=== PATIENT | male | born 1965 | race Caucasian/White ===

== ENCOUNTER 2017-01-31 08:39 | Day surgery (SDC) | payer MEDICAID ==
[2017-01-31] MEDS ORDERED: Lactated Ringers 1,000 ML IV SCH (09:15)
[2017-01-31] MEDS ORDERED: Propofol 200 MG/20 ML SDV ONE (10:18)
[2017-01-31] MEDS ORDERED: fentaNYL 100 MCG/2 ML SDV ONE (10:18)
[2017-01-31] MEDS ORDERED: Midazolam 1 MG/ML 2 ML SDV ONE (10:18)
[2017-01-31] MEDS ORDERED: Glycopyrrolate 0.2 MG/ML 2 ML SDV ONE (10:37)
[2017-01-31 12:24] VITALS: BP 110/72
--- NOTE | 2017-02-01 11:31 | OR ---
DATE OF PROCEDURE: 01/31/2017 PREOPERATIVE DIAGNOSIS: Colon cancer screening. POSTOPERATIVE DIAGNOSIS: Small right colon polyp. PROCEDURE PERFORMED: Colonoscopy to the cecum with biopsy resection of small right colon polyp. ANESTHESIA: IV anesthesia with monitored anesthesia care. INDICATION: This 51-year-old white male is referred for a colonoscopy for colon cancer screening. He has never had a colonoscopic exam. I counseled him for the procedure including risks and alternatives, and he gave his informed consent to proceed. DESCRIPTION OF PROCEDURE: The patient was placed in the left lateral decubitus position. IV anesthesia was administered by the Anesthesia Service. Time-out was held. A rectal exam was performed, which was unremarkable. The flexible video Olympus colonoscope was introduced through his anus, up his rectum, and out his colon all the way to the cecum. En route, in the right colon; we saw a small polyp which was removed with the biopsy forceps. Once the cecum was reached, the scope was slowly withdrawn examining the mucosa throughout. No additional mucosal abnormalities were noted. The scope was retroflexed in the rectum with the distal rectum appearing unremarkable. The scope was straightened and removed. He tolerated the procedure well. Irving Champion MD /[id number] AVEL
== END 2017-01-31 12:30 | disposition home or self-care (01) ==
LOC: JP.SDS 08:39
PROVIDERS: ATTEND Surgery
PROC: 0DBF8ZX Excision of Right Large Intestine, Via Natural or Artificial Opening Endoscopic, Diagnostic (ICD-10-PCS; principal; 2017-01-31)
DX: Z12.11 Encounter for screening for malignant neoplasm of colon (principal); D12.2 Benign neoplasm of ascending colon
CPT/HCPCS: 45380; 88305; J2250; J2704; J3010; J7120; J3490

== ENCOUNTER 2017-08-14 09:01 | Day surgery (SDC) | payer MEDICAID ==
[~2017-08-14 09:01] MED LIST: Midazolam 1 MG/ML 2 ML SDV ONE; Propofol 200 MG/20 ML SDV ONE; fentaNYL 100 MCG/2 ML SDV ONE
[2017-08-14] MEDS ORDERED: Glycopyrrolate 0.2 MG/ML 2 ML SDV IVPUSH ONE (09:30)
[2017-08-14] MEDS ORDERED: Dextrose 5%-Lactated Ringers 1,000 ML IV SCH (09:30)
[2017-08-14 13:39] VITALS: BP 121/76
--- NOTE | 2017-08-20 12:34 | OR ---
DATE OF PROCEDURE: 08/14/2017 PREOPERATIVE DIAGNOSIS: Epigastric discomfort. POSTOPERATIVE DIAGNOSES: Epigastric discomfort associated with: 1. Small hiatal hernia with grossly mild esophagitis. 2. Mild prepyloric gastritis. OPERATIVE PROCEDURES: Esophagogastroduodenoscopy with: 1. Biopsies of esophagogastric junction for histologic evaluation. 2. Biopsies of antrum for CLOtest. ANESTHESIA: IV sedation. INDICATION FOR PROCEDURE: This 52-year-old is presenting with some ongoing upper and midabdominal pain. This is predominantly postprandial. He had been on ranitidine and then recently switched to omeprazole 20 mg a day; however, he had not been taking that routinely and only using it on more or less a p.r.n. basis. He describes the postprandial pain as being across the upper and midabdomen, but more to the sides of flanks bilaterally and not much in the way of heartburn or true reflux symptoms. The plan is to proceed with an upper GI endoscopy with biopsies as indicated. Potential risks including bleeding and perforation were discussed, and the patient wishes to proceed. DETAILS OF PROCEDURE: The patient was taken to the operating room and placed in a left lateral decubitus position. IV sedation was administered, after which the upper GI endoscope was passed orally through the length of the esophagus and into the stomach with retroflexion view of the fundus, thereafter through the pyloric channel and into the proximal duodenum. Findings included normal hypopharynx, larynx, upper esophageal sphincter, and esophageal body. At the EG junction, there was a small hiatal hernia in the range of only around 1 cm and some mild edema of the gastroesophageal junction mucosa. There was no stricturing or upward extension of the gastroesophageal junction mucosal line above the upper gastric folds. Within the stomach, apart from the hiatal hernia, proximal stomach was unremarkable. There was some mild prepyloric gastritis without erosions or ulcers. Pyloric channel and the duodenum, the junction of the third and fourth portions, were unremarkable. At this point, biopsies were obtained from the antrum and sent for CLOtest for H. pylori. Multiple biopsies were sent from esophagogastric junction and sent for histologic evaluation. Minimal bleeding from the biopsy sites was seen and the procedure then concluded. The patient will be instructed to take the omeprazole daily at this point and will be following up with Dr. Brooks in 1 to 2 weeks. The endoscopic findings would make one suspicious that something more than gastritis and esophagitis is accounting for his symptoms. One may consider working up the gallbladder or looking at issues such as irritable bowel syndrome given the history of these episodes of pain tending to occur in the postprandial period. Josias Underwood MD /[id number]
== END 2017-08-14 13:45 | disposition home or self-care (01) ==
LOC: JP.SDS 09:01
PROVIDERS: ATTEND Surgery
DX: K29.50 Unspecified chronic gastritis without bleeding (principal); K20.9 Esophagitis, unspecified; K44.9 Diaphragmatic hernia without obstruction or gangrene; Z88.8 Allergy status to other drugs, medicaments and biological substances
CPT/HCPCS: 43239; 87081; 88305; J2250; J2704; J3010; J7042

== ENCOUNTER 2019-03-03 13:31 | Emergency (ER) | payer BC ==
[2019-03-03 13:48] VITALS: BP 143/90
--- NOTE | 2019-03-03 14:23 | EDM.PDOC ---
ED HPI GENERAL MEDICAL PROBLEM - General Chief Complaint: ENT Problem Stated Complaint: SWALLOWED GAUZE Time Seen by Provider: 03/03/19 14:00 Source of Information: Reports: Patient History Limitations: Reports: No Limitations - History of Present Illness INITIAL COMMENTS - FREE TEXT/NARRATIVE: 53-year-old male concerned that he has a piece of gauze stuck in his throat, he called his dentist and she recommended he come in because it can cause obstruction. Initially he was unable to swallow his saliva but now he swallowing , he still feel some scratchiness in the base of his throat but no breathing difficulties. Onset: Sudden Duration: Hour(s): (Within the last hour) Associated Symptoms: Reports: No Other Symptoms - Related Data Allergies Allergy/AdvReac Type Severity Reaction Status Date / Time codeine Allergy SHORT OF Verified 03/03/19 14:01 BREATH Home Meds: Home Meds Lisinopril 1 tab PO DAILY 03/03/19 [History] Past Medical History Cardiovascular History: Reports: Hypertension Gastrointestinal History: Reports: GERD Musculoskeletal History: Reports: Fracture - Past Surgical History HEENT Surgical History: Reports: Oral Surgery Other HEENT Surgeries/Procedures: wisdom teeth Musculoskeletal Surgical History: Reports: Arthroscopic Knee Social & Family History - Family History Family Medical History: Noncontributory - Tobacco Use Smoking Status *Q: Light Tobacco Smoker Years of Tobacco use: 30 Packs/Tins Daily: 0.3 - Caffeine Use Caffeine Use: Reports: Coffee - Recreational Drug Use Recreational Drug Use: No ED ROS ENT - Review of Systems Review Of Systems: See Below Constitutional: Denies: Fever HEENT: Reports: Dental Pain, Throat Pain Respiratory: Denies: Shortness of Breath Cardiovascular: Denies: Chest Pain (Recent extraction) GI/Abdominal: Denies: Nausea, Vomiting ED EXAM, ENT - Physical Exam Exam: See Below Exam Limited By: No Limitations General Appearance: Alert, No Apparent Distress Mouth/Throat: Other (Recent dental extraction site seen, no foreign body in the posterior pharynx) Head: Atraumatic Respiratory/Chest: No Respiratory Distress, Lungs Clear Course - Vital Signs Last Recorded V/S: Last Vital Signs Temp 96.0 F 03/03/19 13:59 Pulse 65 03/03/19 13:59 Resp 13 03/03/19 13:59 BP 143/90 H 03/03/19 13:59 Pulse Ox 97 03/03/19 13:59 - Re-Assessments/Exams Free Text/Narrative Re-Assessment/Exam: 03/03/19 14:22 Discussed with both local surgeons, there should be no concern about a small piece of gauze being swallowed in the stomach. I had him drink a full bottle water without any problem. He still felt some irritation but it's unlikely there is a foreign body still present. I asked him to return to his normal diet as tolerated and recheck in 2-3 days if not improving. Departure - Departure Time of Disposition: 14:38 Disposition: Home, Self-Care 01 Clinical Impression: Esophagus, foreign body Qualifiers: Encounter type: initial encounter Qualified Code(s): T18.108A - Unspecified foreign body in esophagus causing other injury, initial encounter - Discharge Information Instructions: Swallowed Foreign Body, Adult Referrals: Armaan Brooks MD [Primary Care Provider] - Forms: ED Department Discharge Care Plan Goals: Increase diet and activity as tolerated, and consider rechecking in 2-3 days if irritation persists. Return sooner if worsening such as inability to swallow.
== END 2019-03-03 14:38 | disposition home or self-care (01) ==
LOC: JP.ED 13:31
DX: T18.108A Unspecified foreign body in esophagus causing other injury, initial encounter (principal); F17.210 Nicotine dependence, cigarettes, uncomplicated; I10 Essential (primary) hypertension; K21.9 Gastro-esophageal reflux disease without esophagitis; Z88.5 Allergy status to narcotic agent
CPT/HCPCS: 99282